=== PATIENT | male | born 1940 | race Caucasian/White ===

== ENCOUNTER 2018-12-24 06:50 | Observation (INO) | payer OTHER, BC ==
[~2018-12-24] VITALS: Ht 190.5 cm; Wt 108.6 kg
--- NOTE | ~2018-12-24 | P ---
[facility] [place] [address] PROCEDURE REPORT Name: TRAVIS FIGUEROA Room #: 204-P [facility] M.R.#: [id number] Admission: 12/24/18 ������������������ Attend Phys: Bhupinder Nevarez MD, Discharge: 12/25/18 ������������������ Date of : 38 Report #: [id number] THIS REPORT FOR: //name// CC: Augustine Nevarez DATE OF SERVICE: 12/24/2018 UPGRADE TO BI-VENTRICULAR PACEMAKER: PREOPERATIVE DIAGNOSES: 1. 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 2. Chronic right ventricular pacing. 3. Complete heart block. The patient is a patient with history of mixed ischemic and nonischemic cardiomyopathy, EF of 40% with chronic right ventricular pacing burden of 100% with class 2 heart failure symptoms, who is here for upgrade to a biventricular pacemaker. ANESTHESIA: The patient underwent MAC anesthesia with no anesthesia related complications. DESCRIPTION OF PROCEDURE: The patient underwent informed consent. We discussed the details of the procedure including the risk, which include but not limited to bleeding, infection, vascular damage as well as stroke or HI. He understood these risks and is willing to proceed. The patient was brought to the EP laboratory in fasting and unsedated state and prepped and draped in a sterile fashion. He received IV antibiotics and underwent a venogram showing patency of the left axillary vein. Next, lidocaine was injected at the prior incision site. The incision was made and the chronic pocket was entered. I then obtained access to left axillary vein x 1 and placed a sheath using the modified Seldinger technique. Next, a guide sheath for the coronary sinus was placed into the right atrium and I obtained access to the coronary sinus. Next, I obtained access to the coronary sinus and performed a coronary sinus venogram. This demonstrated that he had essentially no vessels coming off the coronary sinus. He essentially only had a middle cardiac vein. I was able to advance my sheath into this after performing a double wire technique and I was able to deliver a quadripolar lead into this position, which had good thresholds and no evidence of phrenic nerve stimulation. As such, this sheath was split and the lead remained in position. The lead was sutured to the prepectoral fascia and then the leads were transferred to the new device and placed in the pocket. The pocket was closed in 3 layers and surgical glue was placed to the outer skin layer. The patient awoke neurologically and [facility] [address] [place] [address] PROCEDURE REPORT Name: TRAVIS FIGUEROA Room #: 204-P [facility] George Casillas#: [id number] Admission: 12/24/18 ������������������ Attend Phys: Bhupinder Nevarez MD, Discharge: 12/25/18 ������������������ Date of : 39 Report #: [id number] hemodynamically intact with no complications and no significant bleeding. The explanted pacemaker was a Medtronic dual chamber pacemaker. The newly implanted device was a [employer] model #3262, serial #[id number]. The atrial lead was a Medtronic model #5076, serial #[id number]. The RV lead was a Medtronic model #4076, serial #[id number]. The newly implanted [employer] lead was Quartet model #1458, serial #[id number]. Prior to implantation, the patient was in sinus rhythm, but somewhere in the middle of the case, he went into atrial fibrillation, which is new onset. His atrial lead RV and LV leads are functioning within normal limits and the pacemaker was programmed to the DDD 60-130 mode. CONCLUSIONS: 1. Successful upgrade to a Bi-V pacemaker. 2. Satisfactory atrial, right ventricular and left ventricular pacing and sensing thresholds. ��������������������������������������������� ���������������������������������������� By: ��������������������������������������������� 1249 0055 Emory Griffith MD /nt
[~2018-12-24 06:50] MED LIST: ATORVASTATIN CA10 MG PO; AZOR 10-20 MG1 EACH PO; AZOR 5-20 MG T1 EACH PO; BYSTOLIC 5 MG5 M1 PO; BYSTOLIC10 MG PO; FUROSEMIDE 40 M40 M1 PO; GLUMETZA1000 PO; JANUVIA100 MG PO; JANUVIA25 MG PO; LIPITOR20 MG PO; LO-DOSE ASPIRIN81 M1 PO; METFORMIN HCL1000 M1 PO; POTASSIUM20 PO; PRILOSEC 10MG C10 MG PO; VITAMIN D1000 UNI1 PO; ZANTAC 150MG T150 M1 PO
[2018-12-24 07:26] VITALS: BP 161/73
[2018-12-24 07:37] LABS: ABSOLUTE NEUTROPHILS 7.9 thou/uL (1.4-8.2); BASOPHILS 0.4 % (0.0-2.0); EOSINOPHILS 0.9 % (0.0-3.0); HEMATOCRIT 38.3 % (42.0-52.0); HEMOGLOBIN 12.2 gm/dL (14.0-18.0); LYMPHOCYTES 14.5 % (24.0-44.0); MCH 18.8 pg (26.0-34.0); MCHC 31.8 g/dL (28.0-37.0); MCV 59.1 fL (80.0-100.0); MONOCYTES 7.7 % (1.0-8.0); POLYS 76.5 % (36.0-66.0); RBC 6.48 mil/uL (4.50-6.00); RDW 16.6 % (10.5-14.5); WBC 10.3 thou/uL (4.0-11.0)
[2018-12-24] MEDS ORDERED: NORVASC5 MG PO (07:38)
[2018-12-24] MEDS ORDERED: AVAPRO300 MG PO (07:40)
[2018-12-24] MEDS ORDERED: JANUMET XR 50-1 EAC1 PO (07:41)
[2018-12-24 07:48] LABS: CALCIUM 9.6 mg/dL (8.5-10.1); CREATININE 1.1 mg/dL (0.7-1.3)
[2018-12-24 07:49] LABS: APTT 29.6 Seconds (24.5-32.8); INR 1.1; PROTIME 11.8 Seconds (9.3-11.4)
[2018-12-24 07:54] LABS: ALBUMIN 3.9 g/dL (3.4-5.0); TOTAL BILIRUBIN 1.6 mg/dL (<0.1-1.0); TOTAL PROTEIN 7.7 g/dL (6.4-8.2)
[2018-12-24 08:10] LABS: ANISOCYTOSIS 1+; MICROCYTES 3+; OVALOCYTES 2+
[2018-12-24 08:11] LABS: HYPOCHROMASIA 2+; PLATELET COUNT 157 thou/uL (150-400); TEARDROPS FEW
[2018-12-24 16:15] VITALS: BP 152/63; BP 153/64
[2018-12-24 16:30] VITALS: BP 146/59
[2018-12-24 16:45] VITALS: BP 156/58
[2018-12-24 17:00] VITALS: BP 141/59
--- NOTE | 2018-12-24 18:06 | NUR ---
PT RECEIVED FROM TERRITORY OUTSIDE SALES MANAGER AROUND 1615. PT A/O X 4, DENIES ANY PAIN ON ARRIVAL OR AT THIS TIME. PT ORIENTED TO ROOM AND UPDATED ON POC. ADMISSION DOCUMENTATION COMPLETE. PT ON BEDREST WITH BSC PRIVLEDGES UNTIL TOMORROW MORNING. ALSO TO WEAR ARM IMMOBLILIZER TONIGHT. HOB TO REMAIN AT 45 DEGREES UNITL 2200 PER ORDER. VSS POST PROCEDURE. PT CALM AND COOPERATIVE. VOIDING PER URINAL. ASSESSMENTS PER CHART. LABS NOTED. WILL CONT TO MONITOR AND FOLLOW POC.
[2018-12-24 19:23] VITALS: BP 141/59
[2018-12-25 00:33] VITALS: BP 153/64
[2018-12-25 04:22] VITALS: BP 141/70
--- NOTE | 2018-12-25 04:28 | NUR ---
AOX4. PACED RHYTHM ON THE MONITOR. PULSES 1+/1+. COMPLAINT OF PAIN ON THE LEFT SHOULDER 04/04 DESCRIBED SORENESS, MANAGED BY PRN PAIN MEDS. BLOOD SUGAR 158, BUT PATIENT REFUSED INSULIN PER SLIDING SCALE. IMMOBILIZER ON. LEFT CHEST INCISION THERMABOND INCISION C/D/I. ON STANDBY ASSIST TO BEDSIDE COMMODE. FF UP POC.
[2018-12-25 07:35] VITALS: BP 166/68
[2018-12-25] MEDS ORDERED: MAGOX 400400 MG PO (10:08)
[2018-12-25] MEDS ORDERED: PRADAXA150 MG PO (10:21)
[2018-12-25 10:26] VITALS: BP 166/68
--- NOTE | 2018-12-25 10:55 | NUR ---
ASSUMED CARE AT SHIFT CHANGE. PT A/O X 4, UP TO CHAIR THIS AM, STEADY GAIT. DENIES ANY PAIN. VSS. PT D/C TO HOME WITH POST PROCEDURE INSTRUCTIONS AND RX X 1. ALL QUESTIONS ANSWERED AT TIME OF D/C. IV AND TELE DC'D. PT AMBULATORY WITH STEADY GAIT TO CAR, REFUSED WC ASSISTANCE.
--- NOTE | 2018-12-31 12:17 | D ---
[facility] [place] [address] DISCHARGE SUMMARY Name: TRAVIS FIGUEROA Room #: 204-P [facility] George Casillas#: [id number] Admission: 12/24/18 ������������������ Attend Phys: Bhupinder Nevarez MD, Discharge: 12/25/18 ������������������ Date of : 38 Report #: [id number] THIS REPORT FOR: //name// CC: Augustine Nevarez [facility] DATE OF SERVICE: 12/25/2018 DISCHARGE DIAGNOSES: 1. Coronary artery disease. 2. Nonischemic cardiomyopathy. 3. Ischemic cardiomyopathy. 4. Chronic right ventricular pacing. PROCEDURES PERFORMED: Upgrade to a biventricular pacemaker. HISTORY: The patient is a 78-year-old with history of coronary artery disease, status post CABG with a mixed ischemic and nonischemic cardiomyopathy, EF of 40%, who is status post pacemaker implantation for complete heart block. He was at [facility]. He has chronic RV pacing and therefore I recommended that we upgrade him to a Bi-V pacemaker. The procedure was successful. The procedure was somewhat challenging due to very limited coronary sinus targets. He essentially had nothing coming off the coronary sinus other than the middle cardiac vein. A lead was positioned at the site with adequate pacing and sensing thresholds. During the procedure, he went into atrial fibrillation. When we had interrogated his initial pacemaker he was in sinus rhythm and when we connected the new pacemaker he was in AFib. HOSPITAL COURSE: Overnight, the patient was monitored in the CCU. I gave him 3 doses of amiodarone 400 t.i.d., which did not convert him to sinus rhythm. On the day of discharge, he was doing well. He denied any chest pain, shortness of breath, fevers or chills. PHYSICAL EXAMINATION: HEART: Regular rate and rhythm. LUNGS: Clear to auscultation bilaterally. ABDOMEN: Soft, nontender. EXTREMITIES: Showed no clubbing, cyanosis, or edema. SKIN: His incision site was healing nicely with no significant bruising or hematoma. On device interrogation this morning, his device is functioning normal with stable pacing and sensing thresholds. He was still in atrial fibrillation. He does have heart block; therefore, there are no issues with his rate. His chest x-ray showed stable lead position with no pneumothorax. As such, he was deemed [facility] [address] [place] [address] DISCHARGE SUMMARY Name: TRAVIS FIGUEROA Room #: 204-P [facility] George Casillas#: [id number] Admission: 12/24/18 ������������������ Attend Phys: Bhupinder Nevarez MD, Discharge: 12/25/18 ������������������ Date of : 39 Report #: [id number] stable for discharge home. We will discharge him on his same home medications. He will initiate Pradaxa therapy in the morning at 150 mg twice a day. He will see my nurse practitioner in clinic in 1 week. If he remains in atrial fibrillation, then we will discuss undergoing cardioversion. Discharge instructions were reviewed. ��������������������������������������������� <ELECTRONICALLY SIGNED> ���������������������������������������� By: Emory Griffith MD ��������������������������������������������� 12/31/18 1217 0935 1122 Emory Griffith MD /nt
== END 2018-12-25 10:59 | disposition home or self-care (01) ==
LOC: CATH 06:50 → 2N 16:14
PROVIDERS: ADMIT Internal Medicine Cardiovascular Disease
DX: I25.5 Ischemic cardiomyopathy (principal); I25.10 Atherosclerotic heart disease of native coronary artery without angina pectoris; I44.2 Atrioventricular block, complete; I50.812 Chronic right heart failure; Z95.0 Presence of cardiac pacemaker; Z95.1 Presence of aortocoronary bypass graft
CPT/HCPCS: 62110; 62900; 70005

== ENCOUNTER → 2018-12-27 | Outpatient (CLI) | payer OTHER, BC ==
[~2018-12-27] MED LIST changes: +AVAPRO300 MG PO; +JANUMET XR 50-1 EAC1 PO; +MAGOX 400400 MG PO; +NORVASC5 MG PO; +PRADAXA150 MG PO
== END ==
LOC: RAD 15:27
DX: I11.0 Hypertensive heart disease with heart failure (principal); I50.42 Chronic combined systolic (congestive) and diastolic (congestive) heart failure; I25.5 Ischemic cardiomyopathy; E11.9 Type 2 diabetes mellitus without complications; Z88.8 Allergy status to other drugs, medicaments and biological substances; Z88.2 Allergy status to sulfonamides; Z88.0 Allergy status to penicillin; Z95.0 Presence of cardiac pacemaker

== ENCOUNTER → 2019-01-07 | Outpatient (CLI) | payer OTHER, BC ==
[~2019-01-07] VITALS: Ht 190.5 cm; Wt 104.3 kg
[2019-01-07 07:45] VITALS: BP 145/68
[2019-01-07 08:05] LABS: HEMATOCRIT 33.7 % (42.0-52.0); HEMOGLOBIN 10.7 gm/dL (14.0-18.0); MCH 18.7 pg (26.0-34.0); MCHC 31.9 g/dL (28.0-37.0); MCV 58.6 fL (80.0-100.0); RBC 5.75 mil/uL (4.50-6.00); RDW 16.8 % (10.5-14.5); WBC 9.7 thou/uL (4.0-11.0)
[2019-01-07 08:17] LABS: ALBUMIN 3.4 g/dL (3.4-5.0); CREATININE 1.3 mg/dL (0.7-1.3); POTASSIUM 4.1 mmol/L (3.5-5.1); TOTAL BILIRUBIN 1.4 mg/dL (<0.1-1.0)
[2019-01-07 08:46] LABS: INR 1.4; PROTIME 14.5 Seconds (9.3-11.4)
--- NOTE | 2019-01-07 09:03 | NUR ---
Pacemaker intrerrogated per January EP RN, Dr. Griffith notified pt does not have any antiarrythmics ordered. He states the pt does not need them at this time.
--- NOTE | 2019-01-07 09:14 | TEE ---
[facility] [address] [place] [address] TRANSESOPHAGEAL ECHOCARDIOGRAM Name: TRAVIS FIGUEROA Room #: REG [facility]#: [id number] ������������� Admission: 01/07/19 ������������� Attend Phys: Jorge Luis Boyd, Discharge: ��� ������������� ��� Date of : 38 Date of Service: 01/07/1915 �� Report #: [id number] �������� ��������������������������������������������[id number] THIS REPORT FOR: //name// APPROVED REPORT Study performed: 01/07/2019 08:02:54 EXAM: Transesophageal Echocardiogram and cardioversion Patient Location: [employer] and [employer] paralegal holding Room #: 9 Status: routine BSA: 2.33 HR: 60 bpm BP: 140/68 mmHg Rhythm: Pacemaker Other Information Study Quality: Good Indications Atrial Fibrillation Echo Enhancing Agent Indication: Rule out Shunt Agent(s) / Amount(s) Used: Agitated Saline 7 cc Procedure After obtaining informed consent, patient underwent transesophageal echo in the [employer]. Type of Sedation : Conscious Sedation Sedation was administered by Daniela Boogie RN. Sedation was achieved intravenously with: Versed (4 mg) Fentanyl (100 mcg) Transesophageal probe was inserted and advanced into esophagus without difficulty by Jorge Luis Boyd MD. Echo enhancement indication: R/O Septal defect. Echo enhancement agent administered: Agitated Saline The FADY was performed without complications. Synchronized Cardioversion acheived with 100 Joules after 1 attempt(s). Rhythm following Synchronized Cardioversion: Permanent Paced Rhythm Throughout the procedure, the blood pressure, pulse oximetry, cardiac rhythm, and rate were monitored. The patient tolerated the procedure without adverse effects. Recovery from conscious sedation was uneventful and vital signs were [facility] [address] [place] [address] TRANSESOPHAGEAL ECHOCARDIOGRAM Name: TRAVIS FIGUEROA Room #: REG [place]#: [id number] ������������� Admission: 01/07/19 ������������� Attend Phys: Jorge Luis Boyd, Discharge: ��� ������������� ��� Date of : 38 Date of Service: 01/07/19 0914 �� Report #: [id number] �������� ��������������������������������������������[id number] stable. Left Ventricle The left ventricle is normal size. There is normal left ventricular wall thickness. The left ventricular systolic function is normal. The left ventricular ejection fraction is within the normal range. LVEF is 55-60%. Right Ventricle The right ventricle is normal size. The right ventricular systolic function is normal. Pacemaker lead is present in the right ventricle. Atria Left atrium is dilated. No thrombus is visualized in the left atrium or appendage. No shunting by contrast bubble injection Right atrium is dilated. Pacemaker lead is present in the right atrium. Aortic Valve The aortic valve is normal in structure. No aortic regurgitation is present. There is no aortic valvular stenosis. Mitral Valve Mild mitral leaflet calcification. Mild mitral regurgitation. No evidence of mitral valve stenosis. Tricuspid Valve The tricuspid valve is normal in structure. There is no tricuspid valve regurgitation noted. Pulmonic Valve The pulmonary valve is normal in structure. There is no pulmonic valvular regurgitation. Great Vessels The aortic root is normal in size. IVC is normal in size and collapses >50% with inspiration. Pericardium There is no pericardial effusion. <Conclusion> The left ventricular systolic function is normal. Both atria are dilated. No thrombus is visualized in the left atrium or appendage. No shunting by contrast bubble injection The aortic valve is normal in structure. No aortic regurgitation or [facility] [address] [address] TRANSESOPHAGEAL ECHOCARDIOGRAM Name: TRAVIS FIGUEROA Room #: [facility]#: [id number] ������������� Admission: 01/07/19 ������������� Attend Phys: Jorge Luis Boyd, Discharge: ��� ������������� ��� Date of : 38 Date of Service: 01/07/19913 �� Report #: [id number] �������� ��������������������������������������������[id number] stenosis. Mild mitral leaflet calcification. Mild mitral regurgitation. There is no pericardial effusion. Successful cardioversion of atrial fibrillation to AV sequential biventricular pacing. ��������������������������������������������� <ELECTRONICALLY SIGNED> ���������������������������������������� By: Jorge Luis Boyd MD, FACC ��������������������������������������������� 01/07/19913 3 3 Jorge Luis Boyd MD, FAC /INF
--- NOTE | 2019-01-07 10:43 | NUR ---
Pt awake, alert and oriented. Ambulated to restroom without difficulty. Pt was able to swallow water without choking.
== END | disposition home or self-care (01) ==
LOC: CATH 06:28
PROVIDERS: Internal Medicine
DX: I34.0 Nonrheumatic mitral (valve) insufficiency (principal); I48.91 Unspecified atrial fibrillation; I25.5 Ischemic cardiomyopathy; I11.0 Hypertensive heart disease with heart failure; I50.42 Chronic combined systolic (congestive) and diastolic (congestive) heart failure; E11.9 Type 2 diabetes mellitus without complications; I25.10 Atherosclerotic heart disease of native coronary artery without angina pectoris; E78.5 Hyperlipidemia, unspecified; E66.09 Other obesity due to excess calories; I25.2 Old myocardial infarction; E78.00 Pure hypercholesterolemia, unspecified; Z87.891 Personal history of nicotine dependence; Z95.0 Presence of cardiac pacemaker; Z95.1 Presence of aortocoronary bypass graft; Z79.899 Other long term (current) drug therapy; Z79.01 Long term (current) use of anticoagulants; Z98.890 Other specified postprocedural states; Z88.0 Allergy status to penicillin; Z79.82 Long term (current) use of aspirin

== ENCOUNTER → 2020-03-02 | Outpatient (CLI) | payer OTHER, BC | LOC: SJCVC 10:07 | DX: I25.10 Atherosclerotic heart disease of native coronary artery without angina pectoris (principal); E78.00 Pure hypercholesterolemia, unspecified; I10 Essential (primary) hypertension; E11.9 Type 2 diabetes mellitus without complications; I49.5 Sick sinus syndrome; I48.0 Paroxysmal atrial fibrillation; I25.5 Ischemic cardiomyopathy; Z95.1 Presence of aortocoronary bypass graft; Z95.0 Presence of cardiac pacemaker ==

== ENCOUNTER → 2020-03-29 | Outpatient (CLI) | payer OTHER, BC | LOC: SJCVC 13:10 | PROVIDERS: ATTEND Internal Medicine Cardiovascular Disease | DX: R94.31 Abnormal electrocardiogram [ECG] [EKG] (principal); I48.0 Paroxysmal atrial fibrillation; I42.9 Cardiomyopathy, unspecified; I25.810 Atherosclerosis of coronary artery bypass graft(s) without angina pectoris; I11.0 Hypertensive heart disease with heart failure; I50.9 Heart failure, unspecified; E78.5 Hyperlipidemia, unspecified; E11.9 Type 2 diabetes mellitus without complications; Z95.1 Presence of aortocoronary bypass graft; Z79.899 Other long term (current) drug therapy; Z79.82 Long term (current) use of aspirin; Z82.49 Family history of ischemic heart disease and other diseases of the circulatory system; Z95.810 Presence of automatic (implantable) cardiac defibrillator ==

== ENCOUNTER → 2020-09-11 | Outpatient (CLI) | payer OTHER, BC | LOC: SJCVCIMAG 09:55 | PROVIDERS: ATTEND Internal Medicine Cardiovascular Disease | DX: I08.8 Other rheumatic multiple valve diseases (principal); I25.10 Atherosclerotic heart disease of native coronary artery without angina pectoris; E11.9 Type 2 diabetes mellitus without complications; I49.5 Sick sinus syndrome; I11.0 Hypertensive heart disease with heart failure; I50.22 Chronic systolic (congestive) heart failure; E78.00 Pure hypercholesterolemia, unspecified; I48.0 Paroxysmal atrial fibrillation; I48.19 Other persistent atrial fibrillation; Z95.0 Presence of cardiac pacemaker; Z95.1 Presence of aortocoronary bypass graft; Z79.899 Other long term (current) drug therapy ==

== ENCOUNTER 2020-10-15 16:51 | Emergency (ER) | payer OTHER, BC ==
[~2020-10-15] VITALS: Ht 190.5 cm; Wt 102.1 kg
[2020-10-15 19:00] LABS: ANION GAP 12 mmol/L (7-16); BUN 22 mg/dL (7-18); CALCIUM 9.5 mg/dL (8.5-10.1); CHLORIDE 98 mmol/L (98-107); CO2 25 mmol/L (21-32); CREATININE 1.4 mg/dL (0.7-1.3); GLUCOSE 176 mg/dL (74-106); POTASSIUM 4.3 mmol/L (3.5-5.1); SODIUM 135 mmol/L (136-145)
[2020-10-15 19:06] LABS: HEMATOCRIT 35.2 % (42.0-52.0); HEMOGLOBIN 10.9 gm/dL (14.0-18.0); MCH 18.4 pg (26.0-34.0); MCV 59.3 fL (80.0-100.0); PLATELET COUNT 181 thou/uL (150-400); RBC 5.95 mil/uL (4.50-6.00); RDW 17.3 % (10.5-14.5); WBC 9.7 thou/uL (4.0-11.0)
[2020-10-15 19:11] LABS: ALBUMIN 3.7 g/dL (3.4-5.0); SGOT 22 U/L (15-37); SGPT 20 U/L (16-63); TOTAL BILIRUBIN 1.1 mg/dL (0.2-1.0); TOTAL PROTEIN 7.2 g/dL (6.4-8.2); TROPONIN-I <0.06 ng/mL (<0.06)
[2020-10-15 20:05] LABS: ABSOLUTE NEUTROPHILS 7.7 thou/uL (1.4-8.2); ANISOCYTOSIS 1+; MICROCYTES 2+
[2020-10-15 20:06] LABS: HYPOCHROMASIA 2+; POLYCHROMASIA OCCASIONAL
[2020-10-15 20:20] LABS: URINE BILIRUBIN NEGATIVE (Negative); URINE BLOOD NEGATIVE (Negative); URINE CLARITY CLEAR; URINE COLOR YELLOW; URINE GLUCOSE-RANDOM* NEGATIVE (Negative); URINE KETONES NEGATIVE (Negative); URINE LEUKOCYTES-REFLEX TRACE (Negative); URINE NITRITE-REFLEX NEGATIVE (Negative); URINE PROTEIN (DIPSTICK) 1+ (Negative); URINE SPECIFIC GRAVITY >= 1.030 (1.005-1.035); URINE UROBILINOGEN 0.2 E.U./dl (0.2-1.0)
[2020-10-15 20:50] LABS: BACTERIA-REFLEX 1-9 Few /HPF (None Seen); CASTS None Seen /LPF (None Seen); CRYSTALS None Seen /LPF (None Seen); SQUAMOUS 0-3 Few /LPF (0-3); URINE RBC None Seen /HPF (0-2); URINE WBC-REFLEX 0-5 Rare /HPF (0-5)
[2020-10-15] MEDS ORDERED: CEFUROXIME500 MG PO (21:00)
[2020-10-15] MEDS ORDERED: ZPAK PO (21:00)
[2020-10-15 21:08] VITALS: BP 115/52
--- NOTE | 2020-10-16 07:16 | EKG ---
[place] [address] [facility] [place] [address] ELECTROCARDIOGRAM REPORT Name: TRAVIS FIGUEROA [facility] [id number] Admission: 10/15/20 Attend Phys: Discharge: 10/15/20 Date of : 38 Report #: [id number] [facility] ED Test Date: 2020-10-15 Test Time: 16:56:23 Pat Name: TRAVIS FIGUEROA Department: Room: Gender: M Lay Out Former: JESUS MANUEL : 1940 Requested By: Adi Bingham Order Number: [id number] MD: Neville Tsang Measurements Intervals [place] Rate: 83 P: -26 VA: 179 QRS: 204 QRSD: 149 T: 96 QT: 406 QTc: 477 Interpretive Statements Atrial-sensed ventricular-paced rhythm No further analysis attempted due to paced rhythm Baseline wander in lead(s) V3 Compared to ECG 11/14/2012 22:32:17 No significant changes Electronically Signed On 10-16-2020 7:16:44 HOU[employer] S[employer] LANGUAGE INTERPRETER by Neville Tsang [email or web address] <ELECTRONICALLY SIGNED> By: Neville Tsang MD, [facility] 10/16/20 0716 55 55 Neville Tsang MD, FACC /EPI
== END 2020-10-15 21:30 | disposition home or self-care (01) ==
LOC: ER 16:51
PROVIDERS: Emergency Medicine
DX: U07.1 COVID-19 (principal); J12.89 Other viral pneumonia; E86.0 Dehydration; I11.0 Hypertensive heart disease with heart failure; I50.42 Chronic combined systolic (congestive) and diastolic (congestive) heart failure; I48.91 Unspecified atrial fibrillation; I25.10 Atherosclerotic heart disease of native coronary artery without angina pectoris; E78.00 Pure hypercholesterolemia, unspecified; E11.9 Type 2 diabetes mellitus without complications; Z79.899 Other long term (current) drug therapy; Z79.82 Long term (current) use of aspirin; Z87.891 Personal history of nicotine dependence; Z88.0 Allergy status to penicillin

== ENCOUNTER → 2020-12-21 | Outpatient (CLI) | payer OTHER, BC ==
[~2020-12-21] MED LIST changes: +CEFUROXIME500 MG PO; +ZPAK PO
== END | disposition home or self-care (01) ==
LOC: SJCVC 15:29
PROVIDERS: ATTEND Internal Medicine Cardiovascular Disease
DX: I25.10 Atherosclerotic heart disease of native coronary artery without angina pectoris (principal); E11.9 Type 2 diabetes mellitus without complications; I49.5 Sick sinus syndrome; Z95.1 Presence of aortocoronary bypass graft; I25.5 Ischemic cardiomyopathy; I50.22 Chronic systolic (congestive) heart failure; I10 Essential (primary) hypertension; E78.00 Pure hypercholesterolemia, unspecified; Z95.0 Presence of cardiac pacemaker; Z72.89 Other problems related to lifestyle; Z79.82 Long term (current) use of aspirin; Z79.899 Other long term (current) drug therapy; Z88.2 Allergy status to sulfonamides; Z88.0 Allergy status to penicillin; Z88.8 Allergy status to other drugs, medicaments and biological substances

== ENCOUNTER → 2021-03-08 | Outpatient (CLI) | payer OTHER, BC | LOC: SJCVC 10:14 | PROVIDERS: ATTEND Internal Medicine Cardiovascular Disease | DX: I42.8 Other cardiomyopathies (principal); E78.00 Pure hypercholesterolemia, unspecified; E11.9 Type 2 diabetes mellitus without complications; I49.5 Sick sinus syndrome; I11.0 Hypertensive heart disease with heart failure; I50.22 Chronic systolic (congestive) heart failure; E78.5 Hyperlipidemia, unspecified; I48.0 Paroxysmal atrial fibrillation; Z88.0 Allergy status to penicillin; Z88.2 Allergy status to sulfonamides; Z95.1 Presence of aortocoronary bypass graft; Z95.810 Presence of automatic (implantable) cardiac defibrillator; Z79.82 Long term (current) use of aspirin; Z79.899 Other long term (current) drug therapy; Z82.49 Family history of ischemic heart disease and other diseases of the circulatory system ==

== ENCOUNTER → 2021-10-03 | Outpatient (CLI) | payer OTHER, BC | LOC: SJCVCIMAG 07:59 | PROVIDERS: ATTEND Internal Medicine Cardiovascular Disease | DX: I25.9 Chronic ischemic heart disease, unspecified (principal); I48.91 Unspecified atrial fibrillation; I25.10 Atherosclerotic heart disease of native coronary artery without angina pectoris; U07.1 COVID-19; I42.9 Cardiomyopathy, unspecified; I11.0 Hypertensive heart disease with heart failure; I50.9 Heart failure, unspecified; E78.00 Pure hypercholesterolemia, unspecified; E11.9 Type 2 diabetes mellitus without complications; E78.5 Hyperlipidemia, unspecified; Z95.1 Presence of aortocoronary bypass graft; Z95.810 Presence of automatic (implantable) cardiac defibrillator; Z88.0 Allergy status to penicillin; Z88.2 Allergy status to sulfonamides; Z88.8 Allergy status to other drugs, medicaments and biological substances; Z79.82 Long term (current) use of aspirin; Z79.899 Other long term (current) drug therapy; Z72.89 Other problems related to lifestyle ==

== ENCOUNTER → 2021-10-07 | Outpatient (CLI) | payer OTHER, BC ==
[~2021-10-07] VITALS: Ht 180.3 cm; Wt 106.6 kg
[~2021-10-07] MED LIST changes: +BENICAR20 MG PO
[2021-10-07 11:59] LABS: HEMATOCRIT 35.8 % (42.0-52.0); HEMOGLOBIN 10.9 gm/dL (14.0-18.0); MCH 18.2 pg (26.0-34.0); MCHC 30.5 g/dL (28.0-37.0); MCV 59.5 fL (80.0-100.0); RBC 6.02 mil/uL (4.50-6.00); RDW 16.9 % (10.5-14.5); WBC 10.9 thou/uL (4.0-11.0)
[2021-10-07 12:03] VITALS: BP 164/74
[2021-10-07 12:03] LABS: CALCIUM 9.2 mg/dL (8.5-10.1); CREATININE 1.1 mg/dL (0.7-1.3); POTASSIUM 4.4 mmol/L (3.5-5.1)
--- NOTE | 2021-10-07 14:12 | EKG ---
[facility] [employer] [place] [address] ELECTROCARDIOGRAM REPORT Name: TRAVIS FIGUEROA Room #: REG [facility]#: [id number] Admission: 10/07/21 Attend Phys: Bhupinder Nevarez MD, Discharge: Date of : 38 Report #: [id number] [facility] Test Date: 2021-10-07 Test Time: 11:28:50 Pat Name: TRAVIS FIGUEROA Department: Room: Gender: Surgical Assist: [facility] : 1940 Requested By: Bhupinder Nevarez Order Number: [id number] MD: Neville Tsang Measurements Intervals [place] Rate: 66 P: -14 [place]: 175 QRS: 263 QRSD: 171 T: 75 QT: 465 QTc: 488 Interpretive Statements Atrial-sensed ventricular-paced rhythm No further analysis attempted due to paced rhythm Compared to ECG 10/15/2020 16:56:23 No significant changes Electronically Signed On 10-07-2021 14:12:02 [employer] by Neville Tsang [email or web address] <ELECTRONICALLY SIGNED> By: Neville Tsang MD, [facility] 10/07/21 1412 D: [id number] 27 Neville Tsang MD, FACC /EPI
[2021-10-07 17:00] VITALS: BP 182/75
--- NOTE | 2021-10-08 11:29 | CATHLAB ---
[facility] [address] [place] [address] INVASIVE PROCEDURE REPORT Name: TRAVIS FIGUEROA Room #: LISA ShipmanFranny#: [id number] Admission: 10/07/21 Attend Phys: Bhupinder Nevarez MD, Discharge: Date of : 38 Report #: [id number] THIS REPORT FOR: cc: Augustine Ling MD, Bernard O. MD Mancuso, Gerald M. MD [facility] ~ APPROVED REPORT Study performed: 10/07/2021 12:46:19 Patient Details Patient Status: Out-Patient Room #: The patient is a 81 year-old male Event Personnel Bhupinder Nevarez [employer], Daniela Boogie RN RN, Danielle Watson RTR ScrubElmer Ja'net RTR Monitor Procedures Performed Art Access - R femoral artery* Aortogram Abdominal Peripheral Angio 941288 Left Heart Cath Coronaries, Bypass Grafts 0564421 CCORCABG 27767 Initial Mod Sed Same Phys/QHP Gr5y 261591 29538 Mod Sed Same Phys/QHP Ea 787597 Hemostasis w/ Mynx Indication Chest pain Procedure Narrative The patient was brought electively to the Cardiac Catheterization Laboratory and was prepped and draped in a sterile manner. The Right Groin^ was infiltrated with 1% Lidocaine subcutaneous anesthesia. A PINNACLE 6FR Sheath #[id number] sheath was inserted into the RFA^. Coronary angiography was performed using coronary diagnostic catheters. The right coronary system was accessed and visualized with a JR4 catheter. The left coronary system was accessed and visualized with a JL4 catheter. The left ventricle was accessed and visualized with a PIGTAIL catheter. An aortogram of the abdominal aorta was performed. Closure device was deployed with a Fr MYNXGRIP 6/7F #[id number]. The patient tolerated the procedure well and there were no complications associated with the procedure. There was no hematoma. Intraoperative Conscious Sedation Sedation start time: 13:18 Case end Time: [facility] [address] [place] [address] INVASIVE PROCEDURE REPORT Name: TRAVIS FIGUEROA [facility]: [facility] [id number] Admission: 10/07/21 Attend Phys: Bhupinder Nevarez, Discharge: Date of : 38 Report #: [id number] 13:57 Fentanyl 50 mcg Versed 1 mg Fluoro Time: 4.60 minutes Dose: DAP 14405.70 cGycm2 1693 mGy Contrast Type and Amount: Omnipaque 200 ml Hemodynamics The aortic pressure is 159/61 mmHg with a mean of 96 mmHg. The left ventricular pressure is 172/3 mmHg with a mean of mmHg. The left ventricular end diastolic pressure is 26 mmHg. Conclusion #1 Normal left ventricular size systolic function lower limits of normal EF 50 to 55%. #2 abdominal aortogram is mild aortic ectasia and calcification but no significant aneurysm formation. Brisk flow distally into the iliac system. #3 left main with mild disease giving rise to an occluded LAD and circumflex system. #4 LAD is proximally occluded after small septal felt hat pouncing operator hand. #5 the [place] circumflex is proximally occluded off the left main. #6 the DEVI to the LAD is intact with only mild irregularities this LAD extends around the apex. There is no retrograde filling of the diagonal branch. #7 [place] right coronary artery occluded. #8 SVG to OM is intact with a 50% anastomotic lesion mild disease in the circumflex OM system. Collateral filling of the RJ is noted. This may have been a jump to a diagonal branch multiple small vessels are filling. #9 SVG to an OM branch is patent with minimal distribution #10 SVG to a PDA is intact with a 50% anastomotic lesion. There is some retrograde filling of the posterior lateral branch Recommendations and plan: Continue aggressive risk factor modification there is no indication for coronary intervention. <ELECTRONICALLY SIGNED> By: Bhupinder Nevarez MD, [facility] 10/08/211128 28 28 Bhupinder Nevarez MD, FACC /INF
== END | disposition home or self-care (01) ==
LOC: CATH 10:38
PROVIDERS: ATTEND Internal Medicine Cardiovascular Disease
DX: R07.9 Chest pain, unspecified (principal); I25.10 Atherosclerotic heart disease of native coronary artery without angina pectoris; I77.811 Abdominal aortic ectasia; I50.40 Unspecified combined systolic (congestive) and diastolic (congestive) heart failure; E11.9 Type 2 diabetes mellitus without complications; I42.9 Cardiomyopathy, unspecified; I48.19 Other persistent atrial fibrillation; E78.00 Pure hypercholesterolemia, unspecified; Z98.890 Other specified postprocedural states; Z79.899 Other long term (current) drug therapy; Z95.1 Presence of aortocoronary bypass graft; Z79.01 Long term (current) use of anticoagulants